=== PATIENT | male | born 1950 | race Caucasian/White ===

== ENCOUNTER → 2023-11-22 08:29 | Outpatient (REF) | payer OTHER, SELFPAY ==
[2023-11-22 08:56] LABS: % Basophils 0.5 % (0-2); % Eosinophils 3.1 % (0-6); % Immature Granulocytes 0.5 % (0-0.5); % Lymphocytes 31.1 % (20.5-51.1); % Monocytes 8.8 % (1.7-9.3); Absolute Eosinophils 0.3 10^3/uL (0-0.7); Absolute Lymphocytes 2.5 10^3/uL (1.2-3.4); Absolute Monocytes 0.7 10^3/uL (0.1-0.6); Absolute Neutrophils 4.5 10^3/uL (1.4-6.5); Hematocrit 36.7 % (39.0-52.0); Hemoglobin 12.8 g/dL (13.0-18.0); Mean Corp Hgb Conc. 34.9 g/dL (33.0-37.0); Mean Corpuscular Hgb 34.5 pg (27.0-31.0); Mean Corpuscular Volume 98.9 fL (80.0-94.0); Mean Platelet Volume 9.3 fL (7.4-10.4); Nucleated Red Blood Cells % 0 % (-); Platelet Count 234 10^3/uL (130-400); Red Blood Cell Count 3.71 10^6/uL (4.70-6.10); Red Cell Dist. Width 12.8 % (11.5-14.5)
[2023-11-22 09:34] LABS: Glycohemoglobin (HgbA1c) 8.3 % (4.0-5.6)
[2023-11-22 09:50] LABS: ALT (SGPT) 18 U/L (0-50); AST (SGOT) 21 U/L (17-59); Alkaline Phosphatase 104 U/L (38-126); Blood Urea Nitrogen 29 mg/dl (9-20); Calcium 9.2 mg/dl (8.4-10.2); Carbon Dioxide 25 mmol/L (22-30); Chloride 103 mmol/L (98-107); Cortisol, Random 9.2 ug/dl; Glucose 122 mg/dl (70-99); Potassium 4.3 mmol/L (3.5-5.1); Sodium 139 mmol/L (135-145); TSH 2.15 uIU/ml (0.47-4.68); Total Bilirubin 0.5 mg/dl (0.2-1.3); Total Protein 6.9 g/dl (6.3-8.2); eGFR 45.78
[2023-11-22 17:43] LABS: Microalbumin, Random Urine 16.4 mg/dl (0.6-1.7); Microalbumin/creatinine Ratio 204.2 mg/g
== END ==
LOC: REG 08:29
PROVIDERS: ATTENDING PHYSICIAN Internal Medicine Endocrinology, Diabetes & Metabolism; FAMILY PHYSICIAN Family Medicine
DX: E11.65 Type 2 diabetes mellitus with hyperglycemia (principal); E53.8 Deficiency of other specified B group vitamins
CPT/HCPCS: 36415; 80053; 82043; 82533; 82570; 83036; 83835; 84443; 85025

== ENCOUNTER → 2024-08-20 16:52 | Outpatient (REF) | payer OTHER, SELFPAY | LOC: RAD 16:52 | PROVIDERS: ATTENDING PHYSICIAN Nurse Practitioner Family; FAMILY PHYSICIAN Family Medicine | DX: M25.551 Pain in right hip (principal) | CPT/HCPCS: 72110; 73502 ==

== ENCOUNTER → 2024-12-13 15:47 | Outpatient (REF) | payer OTHER, SELFPAY ==
[2024-12-13 17:11] LABS: Blood Urea Nitrogen 38 mg/dl (9-20); Calcium 9.1 mg/dl (8.4-10.2); Carbon Dioxide 26 mmol/L (22-30); Chloride 103 mmol/L (98-107); Glucose 158 mg/dl (70-99); Potassium 4.6 mmol/L (3.5-5.1); Sodium 137 mmol/L (135-145)
== END ==
LOC: REG 15:47
PROVIDERS: ATTENDING PHYSICIAN Internal Medicine Nephrology; FAMILY PHYSICIAN Family Medicine
DX: E11.65 Type 2 diabetes mellitus with hyperglycemia (principal); E11.42 Type 2 diabetes mellitus with diabetic polyneuropathy; E66.3 Overweight
CPT/HCPCS: 36415; 80048

== ENCOUNTER → 2024-12-16 14:18 | Outpatient (REF) | payer OTHER, SELFPAY ==
--- NOTE | 2024-12-10 15:12 | PN.DIAED02 ---
Referral
DSME Class Series Code: [id number]
Referred For: Diabetes Self-Management Training, Medical Nutrition Therapy, Self-Blood Glucose Monitoring, Long-Term Complication Instruction, Accute Complication Instruction, Continuous Glucose Monitoring, Medication management, Insulin
Instruction, Care Coordination, Disease Management
PHI Release Authorization Form Signed: Yes
Demographic
(1) Type 2 diabetes mellitus with hyperglycemia
Status: Chronic Code(s): E11.65 - Type 2 diabetes mellitus with hyperglycemia
Patient's primary language-: Latvian
Education: College degree
Occupation: Retired
- Social
Primary Support Person: Self
Primary Care Takers: Self
Living Arrangements: Self
- Learning Methods
Preferred Method: Reading
Glycemic Control
- Blood Glucose Monitoring Assessment
Date: 11/28/24 (210)
Monitor Brands: My-Apps
Frequency: >4x per day
Time: fasting, before breakfast, after breakfast, before lunch, after lunch, before dinner, after dinner, bedtime, 12 AM, 3 AM
- Hypoglycemia Assessment
Patient carries glucose source: Yes
Patient experiences hypoglycemia: Yes
Frequency: 1-3x per week
Treatment: juice
Time: fasting
Patient has required treatment by others: No (reviewed and encouraged hypogycemia protocol)
- Blood Glucose Monitoring Results
Source: lab
- Hemoglobin A1c
Date: 12/02/24
A1C Percentage (%): 10.1
Medical History of Diabetes
Family Diabetes History: Father
Previous Diabetes Education: Yes
How long ago?: > 10 years ago
Previous visit with Dietitian: No (recommended RD for renal diet)
Complications/Comorbidity/Specialist: Hypertension (Losartan 25 mg QD), Kidney / bladder disease, Metabolic (Jardiance 25 mg QD, Tresiba 60 units QD), Other / symptoms (Depression: Venlafaxine 150 mg , Tadalafil 5 mg unsure of dx)
Current Home Medication
- Insulin Management
Patient adjusts own insulin dosages: No
Patient has access to glucagon: No (Recommended Rx from PCP)
- Insulin Types
Tresiba
Insulin Injection Site: Abdomen, Thigh
Administration Type: FlexPen (60 units HS)
Measures
- Anthropometrics
Height: 5 ft 11.75 in
Actual Weight: 225 lb
- Blood Pressure / Pulse
Blood pressure: 156/80
Pulse: 79
- Diabetes Management
Medical Management for Diabetes: Complete physical exam (11/2024), Dental exam (04/2024), Dilated eye exam (07/2024), Foot exam (09/2024)
Self-Care
- Tobacco Usage
Do you now, or have you ever smoked?: Quit more than 1 year ago
Amount (per day): Other (OCCASIONAL CIGAR)
- Alcohol & Drugs Usage
Drinks Alcohol: Yes
Amount/day: Social Occasions
- Meals & Dining
Meals & Dining: Patient skips meals: Yes, Food Intolerance / Allergy: No, Cultural / Jew Dietary Needs: No
Primary Food Rejector: Self
Primary Water Plant Maintenance Mechanic: Self
Dining Out Frequency: Daily
- Physical Activity
Physical Limitation: Yes (R. HIP INJURY)
Patient participates in physical Activity: No
- Self Foot-Care
Foot Problems: None
- Patient-Self Assessment
Diabetes Knowledge: Good
Feelings About Diabetes: Acceptance
General Health: Good
Importance of Health: Extremely
Stress Level: Medium
Diabetes Interferes With:: Nothing
Barriers to Diabetes Management: Nothing
Depression Survey Score: 21
- Diabetes Identification
Carries Diabetes Identification: No
Diabetes Identification Information Provided: Yes
Care Plan
- Education Needs
Patient Education Needs: Diabetes disease process, Chronic complications, Acute complications, Medication, Monitoring, Physical activity, Psychosocial Adjustment, Nutritional management, Goal setting & problem solving
Recommended Diabetes Training Program based on assessment: Outpatient Diabetes Education Program
- Plan of Care
Plan of Care:
David presented for initial assessment for Nov, 2024 DSME course. Has had DM for over 20 years, currently managed on Tresiba and Jardiance. David expressed concern over high cost of Jardiance, provided PAP information and encouraged him to contact
help desk manager to discuss income qualifications. Currently wearing [employer] Parrish 3 CGM. We assisted with set up of Parrish 3 romero and reviewed CGM monitoring, has back up glucometer at home. David hypoglycemia once weekly, reviewed carrying glucose
when travelling. David reports stage 3 Renal disease, we recommended nephrology and RD follow up. Reviewed goals and encouraged him to contact office with any concerns before class.
--- NOTE | 2024-12-10 15:41 | PN.DIAED04 ---
Education Record
- Education Record
Class Attended: Other (INITIAL DSME EVALUATION)
DSME Class Series Code: [id number]
Instructor: Nurse Practitioner, Registered Nurse (Pam Fine RN)
Pre-Program Knowledge: Needs review / Assistance
Pre-Test Score (%): 80
Goals
- Goal 1
Being Active: Other (VISIT GYM 3/WEEK, STARTING PT IN DECEMBER 2024)
Goals To Be Evaluated: Other
- Goal 2
Healthy Eating: Make better food choices, Follow meal plan
Goals To Be Evaluated: Make better food choices. Follow meal plan
- Goal 3
Monitoring: Monitor more often (RESTARTED ADRIA 3 CGM)
Goals To Be Evaluated: Monitor more often
--- NOTE | 2024-12-18 15:40 | PN.DIAED14 ---
This is to notify you that your patient with diabetes, TALIA FERRELL ( 1950), has enrolled in our diabetes self-management classes that are being held at [facility].
These classes will include an introduction to diabetes, diet, medication, exercise and prevention of complications. At the end of our class series, you will receive a report of your patient's participation and progress for your records.
Please contact me at the Diabetes Center, , if there is any particular information regarding your patient that might be helpful to me.
Sincerely,
Raheem LIM-JOHN,[facility]
--- NOTE | 2024-12-18 15:40 | PN.DIAED04 ---
Education Record
- Education Record
Class Attended: Class 1
DSME Class Series Code: [id number]
Instructor: Nurse Practitioner (RAPHAEL Gilbert)
Class Curriculum:
Outpatient Diabetes Education Program:
Class 1 (120 minutes)
Describe the diabetes disease process and treatment options
Diabetes management
Develop personal strategies to promote health and behavior change
Integrate psychosocial adjustment for daily living
Monitor blood glucose and other parameters. Interpret and use the results for self-management decision making
Prevent, detect, and treat acute complications
Class Length (mins): 120
Post-Class 1 Test Score (%): 100
== END ==
LOC: DES 14:18
PROVIDERS: ATTENDING PHYSICIAN Family Medicine
DX: E11.65 Type 2 diabetes mellitus with hyperglycemia (principal)
CPT/HCPCS: 99078

== ENCOUNTER → 2024-12-30 08:29 | Outpatient (REF) | payer OTHER, SELFPAY ==
--- NOTE | 2024-12-31 10:14 | PN.DIAED04 ---
Education Record
- Education Record
Class Attended: Class 3
DSME Class Series Code: [id number]
Instructor: Registered Dietitian (Sinai Solano, RD, LDN, CDE)
Class Curriculum:
Outpatient Diabetes Education Program:
Class 3 (120 minutes)
Incorporate nutritional management into lifestyle
Class Length (mins): 120
Post-Class 2 & 3 Test Score (%): 100
== END ==
LOC: DES 08:29
PROVIDERS: ATTENDING PHYSICIAN Family Medicine
DX: E11.65 Type 2 diabetes mellitus with hyperglycemia (principal)
CPT/HCPCS: 99078

== ENCOUNTER → 2025-01-06 09:19 | Outpatient (REF) | payer OTHER, SELFPAY ==
--- NOTE | 2025-01-07 14:59 | PN.DIAED04 ---
Education Record
- Education Record
Class Attended: Class 4
DSME Class Series Code: [id number]
Instructor: Nurse Practitioner (Sheron Campoverde NP)
Class Curriculum:
Outpatient Diabetes Education Program:
Class 4 (120 minutes)
Develop personal strategies to promote health and behavior change
Incorporate physical activity into lifestyle
Utilize medications safety for maximum therapeutic effectiveness
Understand different medication/insulin mechanism of action
Preparing for travel
Class Length (mins): 120
Post-Class 4 Test Score (%): 93
== END ==
LOC: DES 09:19
PROVIDERS: ATTENDING PHYSICIAN Family Medicine
DX: E11.65 Type 2 diabetes mellitus with hyperglycemia (principal)
CPT/HCPCS: 99078

== ENCOUNTER → 2025-01-13 12:29 | Outpatient (REF) | payer OTHER, SELFPAY ==
--- NOTE | 2025-01-16 10:26 | PN.DIAED04 ---
Education Record
- Education Record
Class Attended: Class 5
DSME Class Series Code: [id number]
Instructor: Nurse Practitioner (RAPHAEL Gilbert)
Class Curriculum:
Outpatient Diabetes Education Program:
Class 5 (120 minutes)
Prevent, detect, and treat acute complications
Prevent, detect, and treat chronic complications through risk reduction
Develop personal strategies to address psychosocial issues and concerns
Development of diabetes self-management support plan
Letter to physician with DSMS plan attached sent
Class Length (mins): 120
Post-Program Knowledge: Demonstrates competency
Post-Test Score (%): 90
Post-Program Assessment
- Post-Program Assessment
Actual Weight: 218 lb
Blood pressure: 129/80
Post-Program Depression Survey Score: 11
Reviewing Previous Goals?: Yes
Pre-Program Depression Survey Score: 21
- Goals 1 Evaluation
Goals To Be Evaluated: Visit Gym 3 times a week
- Goals 2 Evaluation
Goals To Be Evaluated: Make better food choices. Follow meal plan
- Goals 3 Evaluation
Goals To Be Evaluated: Monitor more often
== END ==
LOC: DES 12:29
PROVIDERS: ATTENDING PHYSICIAN Family Medicine
DX: E11.65 Type 2 diabetes mellitus with hyperglycemia (principal)
CPT/HCPCS: 99078

== ENCOUNTER → 2025-02-03 08:32 | Outpatient (REF) | payer OTHER, SELFPAY ==
--- NOTE | 2025-02-04 09:11 | PN.DIAED04 ---
Education Record
- Education Record
Class Attended: Class 2
DSME Class Series Code: [id number]
Instructor: Registered Dietitian (Sinai Solano, RD, LDN, CDE)
Class Curriculum:
Outpatient Diabetes Education Program:
Class 2 (120 minutes)
Incorporate nutritional management into lifestyle
Understanding nutritional value
Understanding carbohydrate counting
Class Length (mins): 120
== END ==
LOC: DES 08:32
PROVIDERS: ATTENDING PHYSICIAN Family Medicine
DX: E11.65 Type 2 diabetes mellitus with hyperglycemia (principal)
CPT/HCPCS: 99078

== ENCOUNTER → 2025-02-17 14:09 | Outpatient (REF) | payer MEDICARE, SELFPAY ==
[2025-02-17 15:00] LABS: Blood Urea Nitrogen 37 mg/dl (9-20); Calcium 9.4 mg/dl (8.4-10.2); Carbon Dioxide 27 mmol/L (22-30); Chloride 100 mmol/L (98-107); Glucose 295 mg/dl (70-99); Potassium 4.8 mmol/L (3.5-5.1); Sodium 136 mmol/L (135-145)
[2025-02-17 15:11] LABS: Protein/creatinine Ratio 0.3; Urine Protein 20 mg/dl
== END ==
LOC: REG 14:09
PROVIDERS: ATTENDING PHYSICIAN Internal Medicine Nephrology; PRIMARYCARE PHYSICIAN Family Medicine
DX: N18.32 Chronic kidney disease, stage 3b (principal)
CPT/HCPCS: 36415; 80048; 82570; 84156

== ENCOUNTER → 2025-04-24 15:42 | Outpatient (REF) | payer MEDICARE, SELFPAY | LOC: RAD 15:42 | PROVIDERS: ATTENDING PHYSICIAN Family Medicine | DX: M54.41 Lumbago with sciatica, right side (principal) | CPT/HCPCS: 72110 ==

== ENCOUNTER → 2025-06-17 07:05 | Outpatient (REF) | payer MEDICARE, SELFPAY | LOC: MRI 07:05 | PROVIDERS: ATTENDING PHYSICIAN Family Medicine | DX: M54.41 Lumbago with sciatica, right side (principal) | CPT/HCPCS: 72148 ==